=== PATIENT | female | born 1975 | race Hispanic/Latino ===

== ENCOUNTER 2016-07-20 09:17 | Emergency (ER) | payer OTHER ==
--- NOTE | 2016-07-20 09:20 | ED.REPORT ---
HPI-Stroke / CVA Jul 20, 2016 ED Provider: Rob Espinoza MD Patient is a 41 year old female with a history of pancreatic cancer who presents to the ED via EMS complaining of a possible stroke onset approximately 30 min prior to arrival. Associated symptoms include R sided weakness and inability to form complete sentences. Per EMS, she was calling her arm her ear. Her last known well was 0845. Per patient, she was cleaning when she felt like her hand wasn't following what she told it to do, she lost hearing on one side, developed a strange sensation in her mouth, and she began to feel dizzy and weak. She sat down on the couch and tried to tell her daughter what she was feeling but "the right words were not coming out". This lasted about 10-15 min. Her daughter called the [facility] who told her to call EMS. She reports that she woke up with a headache that has persisted. She last had chemo 9 days ago. She receives treatment at [facility]. Nursing Notes Stated Complaint: STROKE SYMPTOMS Nursing Notes Reviewed: Yes Allergies: Coded Allergies: No Known Allergies (Unverified , 07/20/16) Scheduled Dexamethasone (Dexamethasone) 4 Mg Tablet 4 MG PO DAILY (Reported) Multivitamin (Multi Vitamin Daily) 1 Each Tablet 1 EACH PO DAILY (Reported) Omeprazole (Omeprazole) 40 Mg Capsule.dr 40 MG PO DAILY (Reported) Scheduled PRN Diphenoxylate/Atropine (Diphenoxylate-Atrop 2.5-0.025) 2.5 Mg Tablet 1-2 TABLET PO QID PRN PRN For Diarrhea or Loose Stool (Reported) Loperamide (Loperamide) 2 Mg Capsule 2 MG PO q2-4hrs PRN PRN For Diarrhea or Loose Stool (Reported) Lorazepam (Lorazepam) 0.5 Mg Tablet 0.5 MG PO q6 PRN PRN For Insomnia (Reported ) Ondansetron (Ondansetron) 8 Mg Tablet 8 MG PO q12hrs PRN PRN For Nausea ( Reported) Prochlorperazine Maleate (Prochlorperazine) 10 Mg Tablet 10 MG PO q6hrs PRN PRN For Nausea (Reported) Zolpidem (Zolpidem) 10 Mg Tablet 10 MG PO HS PRN PRN Insomnia (Reported) oxyCODONE (oxyCODONE) 5 Mg Tablet 5-10 MG PO q4hrs PRN PRN For Pain (Reported) Miscellaneous Medications B Cmplx 4/Vit D3/C/FA/Zinc Ox (Vital-D Rx Tablet) 1 Each Tablet 1 EACH PO ( Reported) Garlic (Garlic) 1 Each Tablet 1 EACH PO (Reported) General Time Seen by Provider: 09:17 Chief Complaint Other (Changes in speech) Hx Obtained From: Patient, EMS Arrived By: Ambulance Time last known well 0845 Sudden in Onset?: Yes Progression Since Onset: Gradually improving Risk Factors )( TPA Administration/Criteria Stroke Thrombolytic Therapy : TPA Considered: No TPA Administered Intravenously: No, not indicated (Stroke scale score zero) NIH Stroke Scale Level of Consciousness: Alert and responsive (0) Ask Month & Age: Both questions right (0) Open/Close Eyes/Hand Long Term Care Administrator: Performs both tasks (0) Horizontal EO Movements: None (0) Visual Russell: No visual loss (0) Facial Palsy: Normal symmetry (0) Right Arm Motor Drift (10s): No drift 10 sec (0) Left Arm Motor Drift (10s): No drift 10 sec (0) Right Leg Motor Drift (5s): No drift 5 sec (0) Left Leg Motor Drift (5s): No drift 5 sec (0) Limb Ataxia FNF/Heel-Walker: No ataxia (0) Sensation (Arms/Legs/Face): No sensory loss (0) Language Aphasia: No aphasia, normal (0) Dysarthria: No dysarthria, normal (0) Extinction/Inattention: No exctinct/inattent (0) NIHSS Score: 0 Time NIHSS Performed: 09:30 Date NIHSS Performed: Jul 20, 2016 )( CVA Risk Stratification No Diabetes mellitus, No Hyperlipidemia, No Hypertension, No Prior CVA/TIA Risk factors reviewed Past Medical History Past Medical History Reports: Cancer (Pancreatic), Denies: Diabetes mellitus, Stroke Denies: Seizure disorder Past Surgical History Unknown Smoking History Unknown if Ever Smoker Social History Other Social History: Good social support Ambulatory Status Independent Review of Systems Constitutional: Reports: Weakness - generalized Ears / Nose / Throat: Reports: Hearing loss right Cardiovascular: Denies: Chest pain GI: Denies: Nausea, Vomiting Neurologic: Reports: Dizziness, Headache, Unable to speak, Weakness (R side, resolved ), Denies: Numbness, Problem walking Complete sys rev & neg: except as marked. Physical Exam Initial Vital Signs Vital Signs (First) Date Time Temp Pulse Resp B/P Pulse Ox O2 Delivery O2 Flow Rate FiO2 07/20/16 09:25 36.4 64 16 141/73 100 Room Air Initial VS: Reviewed Extremities: No swelling Skin: Warm, Dry Psychiatric: Mood/affect normal, Behavior normal, Normal thought content General/Constitutional: Awake, Alert, Well developed Head / Eyes: Atraumatic, Normocephalic, PERRL, EOMI Neck: Supple Respiratory / Chest: Atraumatic, Breath sounds NL, Breath sounds = bilat, No respiratory distress Cardiovascular: Heart rate NL, Regular rhythm, Heart sounds NL, Peripheral circulation NL Neurologic: Oriented X3, Speech NL See NIH stroke scale Abdomen: Atraumatic, Soft, Non-tender Interpretation & Diagnostics Lab Results Interpretation Result Diagram: 07/20/16 0921 07/20/16 0921 Test 07/20/16 09:21 White Blood Count 15.8th/mm3 (3.8-10.1) Red Blood Count 4.02mil/mm3 (3.90-5.20) Hemoglobin 11.7g/dL (12.0-15.6) Hematocrit 33.5% (35.0-46.0) Mean Corpuscular Volume 83.3fL (81-100) Mean Corpuscular Hemoglobin 29.1pg (27.0-35.0) Mean Corpuscular Hemoglobin Concent 34.9% (32.0-37.0) Red Cell Distribution Width 14.9% (12.3-15.4) Platelet Count 225bil/L (150-400) Neutrophils (%) (Auto) 61.5% (40-74) Lymphocytes (%) (Auto) 23.3% (14-46) Monocytes (%) (Auto) 10.6% (4-12) Eosinophils (%) (Auto) 3.0% (0-5) Basophils (%) (Auto) 0.5% (0-3) Prothrombin Time 11.2sec (8.1-12.5) Prothromb Time International Ratio 1.05ratio Activated Partial Thromboplast Time 22.7sec (22.8-33.0) Sodium Level 139mEq/L (134-144) Potassium Level 3.3mEq/L (3.5-5.2) Chloride Level 101mEq/L (97-108) Carbon Dioxide Level 22mmol/L (18-29) Blood Urea Nitrogen 7mg/dL (6-24) Creatinine 0.61mg/dL (0.57-1.00) Estimat Glomerular Filtration Rate 153mL/min (>59) Glucose Level 100mg/dL (60-99) Calcium Level 9.2mg/dL (8.5-10.1) Total Bilirubin 0.4mg/dL (0.0-1.2) Aspartate Amino Transf (AST/SGOT) 48U/L (0-50) Alanine Aminotransferase (ALT/SGPT) 91U/L (0-32) Alkaline Phosphatase 245U/L (25-150) Troponin T < 0.010ug/L (0.0-0.011) Total Protein 6.6g/dL (6.4-8.4) Albumin 4.3g/dL (3.4-5.0) ECG Interpretation ECG Interpretation: Sinus rate [address], T changes Time: 10:03 Interpreted by: ED physician CT Head Interpretation CT BRAIN: IMPRESSION: No acute intracranial process. Findings personally discussed with Dr. Espinoza in the emergency department at 0934 hours 07/20/16 This study fulfills neurological imaging criteria for inclusion or exclusion of acute stroke therapies based on available published neurological imaging guidelines. Dictated by: Omar Whaley M.D. on 07/20/2016 at 9:29 Approved by: Omar Whaley M.D. on 07/20/2016 at 9:34 Study: Head CT no contrast Interpretation / Wet Read by: Interpret - Radiologist, Discussed w radiologist Re-Eval/Medical Decision Med Decision/Clinical Course 41-year-old female history of pancreatic cancer with metastases presenting with right-sided weakness and dysarthria prior to arrival. Symptoms resolved prior to arrival. She has no history of CVA. Code stroke was called immediately. CT scan no acute hemorrhage. Her labs are unremarkable. Recommended admission for stroke workup but patient declined and requested to go home. Patient understood the risks up to possibility of . Given her medical state, I certainly respect her decision. Re-Evaluation/Progress #1: Time of Eval: 10:46 )( Re-Eval Neurologic Exam: Alert Re-Evaluation/Progress Note: Rechecked patient. She is still deciding of she would like to be admitted or discharged. Re-Evaluation/Progress #2: Time of Eval: 11:14 )( Re-Eval Neurologic Exam: Alert Re-Evaluation/Progress Note: Patient is requesting to go home. Discussed plan for discharge with follow up. Patient understands and agrees with plan. All questions addressed at this time. Counseled Regarding: Diagnosis, Lab results, Need for follow-up, When/why to return to ED Patient Discharge & Departure Impression: Primary Impression: TIA (transient ischemic attack) Transient cerebral ischemia type: unspecified Qualified Code: G45.9 - Transient cerebral ischemic attack, unspecified Disposition: Home Discharge Condition All VS Reviewed: Yes Condition: Stable Additional Instructions: Thank you for entrusting us with your care. It appears you may have had a TIA or seizure. You have decided to go home. Please return is you change your mind or have signs or symptoms of seizure or stroke. These include changes in vision , weakness, numbness, tingling, trouble swallowing, or any other new or worsening symptoms. Please follow up with your primary care doctor tomorrow. Referrals: Michael Marrufo MD (PCP) Crit Care Except Billable Proc Time Spent: 30-74 minutes Services Performed: Patient management by me, Time spent at bedside, Reviewing test results, Reviewing imaging, Discussing patient care, Documentation in record, Time with fam/surrogate Scribe Attestation Portions of this note were transcribed by Roman Echevarria. I, Dr. Espinoza personally performed the history, physical exam and medical decision-making; I reviewed and confirmed the accuracy of the information in the transcribed note. Signed by: Roman Echevarria 07/20/2016, 1115 copies to: Michael Marrufo MD, Ben M MD Jul 20, 2016 09:20 ROMAN ECHEVARRIA Jul 20, 2016 09:26
[2016-07-20 09:24] LABS: BASOPHILS % (AUTO) 0.5 % (0-3); MONOCYTES % (AUTO) 10.6 % (4-12); Mean Corpuscular Hemoglobin 29.1 pg (27.0-35.0); Mean Corpuscular Volume 83.3 fL (81-100); NEUTROPHILS % (AUTO) 61.5 % (40-74); Platelet Count 225 bil/L (150-400)
[2016-07-20 09:25] VITALS: BP 141/73; PULSE 64; RESP 16; O2SAT 100
--- NOTE | 2016-07-20 09:36 | DRSVH ---
PROCEDURE: CT BRAIN (TPA) ([id number]) INDICATIONS: Stroke TECHNIQUE: Noncontrast 4.5 mm thick angled axial sections acquired from the foramen magnum to the vertex, with c oronal reformats. COMPARISON: None. FINDINGS: Image quality: Excellent. CSF spaces: Basal cisterns are patent. No extra-axial fluid collections. Ventricles are normal in size and shape. Brain: No midline shift. No intracranial masses or hemorrhage. Douglass-white matter interface is norm al. Skull and face: Calvarium and visualized facial bones are intact, without suspicious lesions. Sinuses: Visualized sinuses and mastoids are clear. IMPRESSION: No acute intracranial process. Findings personally discussed with Dr. Espinoza in [facility] emergency department at 0934 hours 07/20/16 This study fulfills neurological imaging criteria for inclusion or exclusion of acute stroke therapie s based on available published neurological imaging guidelines. Dictated by: Omar Whaley M.D. on 07/20/2016 at 9:29 Approved by: Omar Whaley M.D. on 07/20/2016 at 9:34
[2016-07-20 10:00] LABS: INR 1.05 ratio
[2016-07-20] MEDS ORDERED: PROC10TA PO (10:01)
[2016-07-20] MEDS ORDERED: ZOLP10TA5 PO (10:01)
[2016-07-20] MEDS ORDERED: LOM PO (10:01)
[2016-07-20] MEDS ORDERED: OXYC5TAB72 PO (10:01)
[2016-07-20] MEDS ORDERED: ONDA-54 PO (10:01)
[2016-07-20] MEDS ORDERED: LOPE2CAP PO (10:01)
[2016-07-20] MEDS ORDERED: DXM4T PO (10:15)
[2016-07-20] MEDS ORDERED: OMEP40CA36 PO (10:15)
[2016-07-20] MEDS ORDERED: LORA0.5T PO (10:15)
--- NOTE | 2016-07-20 10:17 | NUR ---
Evaluation completed. Please go to "Notes" then click on "Assessments and Notes" (bottom left corner of screen). Then select appropriate discipline tab on top of screen.
[2016-07-20 10:20] LABS: TROPONIN T < 0.010 ug/L (0.0-0.011)
[2016-07-20] MEDS ORDERED: GARL1TAB PO (10:28)
[2016-07-20] MEDS ORDERED: MULT-1018 PO (10:28)
[2016-07-20] MEDS ORDERED: B CM1TAB PO (10:28)
[2016-07-20 11:02] VITALS: BP 126/79; PULSE 72; RESP 16; O2SAT 99
[2016-07-20 11:30] VITALS: BP 126/79; PULSE 72; RESP 16; O2SAT 99
== END 2016-07-20 11:32 | disposition home or self-care (01) ==
LOC: SED 09:17
DX: G45.9 Transient cerebral ischemic attack, unspecified (principal); Z85.07 Personal history of malignant neoplasm of pancreas; Z79.899 Other long term (current) drug therapy